=== PATIENT | female | born 2000 | race Two or more races ===

== ENCOUNTER → 2020-06-09 | Emergency (ER) | payer OTHER ==
[~2020-06-09] VITALS: Ht 175.3 cm; Wt 122.9 kg
[~2020-06-09] MED LIST: ADVIL; DOLOGESIC 500-1 EACH PO
== END | disposition home or self-care (01) ==
LOC: ER 02:49
DX: R51.9 Headache, unspecified (principal); R50.9 Fever, unspecified; Z11.52 Encounter for screening for COVID-19

== ENCOUNTER 2020-06-11 22:14 | Emergency (ER) | payer OTHER ==
[~2020-06-11] VITALS: Ht 175.3 cm; Wt 122.9 kg
[~2020-06-11 22:14] MED LIST changes: -ADVIL
[2020-06-11] MEDS ORDERED: ADVIL (22:33)
== END 2020-06-12 01:16 | disposition home or self-care (01) ==
LOC: ER 22:14
DX: A90 Dengue fever [classical dengue] (principal)

== ENCOUNTER 2023-03-26 18:31 | Emergency (ER) | payer OTHER ==
[~2023-03-26] VITALS: Ht 177.8 cm; Wt 116.6 kg
[~2023-03-26 18:31] MED LIST changes: +ADVIL
[2023-03-26 20:56] LABS: HEMATOCRIT 36.8 % (36.0-45.00); HEMOGLOBIN 12.2 g/dL (12.0-15.00); MEAN CELL VOLUME 81.9 fL (80.00-100.00); MEAN CORPUSCULAR HEMOGLOBIN 27.1 pg (27.00-32.0); MEAN CORPUSCULAR HGB CONC 33.1 g/dl (32.0-36.0); PLATELET COUNT 290 K/uL (150-450); RED BLOOD COUNT 4.49 M/uL (4.00-6.00); RED CELL DISTRIBUTION WIDTH 15.8 % (11.5-14.5)
[2023-03-26 21:10] LABS: URINE APPEARANCE Cloudy; URINE BILIRRUBIN Negative (NEGATIVE); URINE BLOOD Large; URINE COLOR Yellow; URINE GLUCOSE Negative (NEGATIVE); URINE LEUKOCYTE Trace; URINE NITRATE Negative
[2023-03-26 21:11] LABS: URINE RBC 845.7 uL (0.0-20.8); URINE WBC 89.9 uL (0.0-23.2)
[2023-03-26 21:12] LABS: INR 1.01; PARTIAL THROMBOPLASTIN TIME 32.8 SECONDS (22.0-34.0); PROTHROMBIN TIME 10.6 SECONDS (9.0-11.5)
[2023-03-26 21:17] LABS: URINE PROTEIN 100 (NEGATIVE)
[2023-03-26 22:03] LABS: CALCIUM 8.9 mg/dL (8.5-10.1); CREATININE SERUM 0.69 mg/dL (0.55-1.02); GFR 104.52; POTASSIUM 3.83 mEq/L (3.5-5.1)
== END 2023-03-27 00:19 | disposition home or self-care (01) ==
LOC: ER 18:31
PROVIDERS: General Practice
DX: O20.8 Other hemorrhage in early pregnancy (principal); Z3A.01 Less than 8 weeks gestation of pregnancy; R10.2 Pelvic and perineal pain; N93.8 Other specified abnormal uterine and vaginal bleeding

== ENCOUNTER 2024-03-14 08:10 | Inpatient (IN) | payer OTHER ==
[~2024-03-14] VITALS: Ht 177.8 cm; Wt 3.2 kg
[2024-03-14 08:15] VITALS: BP 133/79
[2024-03-14] MEDS ORDERED: RINGERS SOLUTION,LACTATED 1,000 ML IV SCH (08:30)
[2024-03-14 08:41] VITALS: BP 133/79
[2024-03-14 08:47] LABS: HEMATOCRIT 37.8 % (36.0-45.00); HEMOGLOBIN 12.2 g/dL (12.0-15.00); MEAN CELL VOLUME 79.3 fL (80.00-100.00); MEAN CORPUSCULAR HEMOGLOBIN 25.6 pg (27.00-32.0); MEAN CORPUSCULAR HGB CONC 32.2 g/dl (32.0-36.0); PLATELET COUNT 237 K/uL (150-450); RED BLOOD COUNT 4.76 M/uL (4.00-6.00); RED CELL DISTRIBUTION WIDTH 17.6 % (11.5-14.5)
[2024-03-14] MEDS ORDERED: LABETALOL HCL200 MG PO (08:47)
[2024-03-14] MEDS ORDERED: PRENATABS RX T1 EACH PO (08:47)
[2024-03-14 08:48] LABS: URINE APPEARANCE Turbid; URINE BILIRRUBIN Negative (NEGATIVE); URINE BLOOD Large; URINE COLOR Yellow; URINE GLUCOSE Negative (NEGATIVE); URINE KETONE Negative (NEGATIVE); URINE LEUKOCYTE Trace; URINE NITRATE Negative; URINE UROBILINOGEN 0.2 E.U./dl
[2024-03-14 08:49] LABS: URINE BACTERIA 1498.1 uL (0.0-1933); URINE EPITHELIAL CELLS 85.6 uL (0.0-38.8); URINE RBC 2174.5 uL (0.0-20.8)
[2024-03-14 09:06] LABS: INR 0.94; PARTIAL THROMBOPLASTIN TIME 30.5 SECONDS (22.0-34.0); PROTHROMBIN TIME 10.3 SECONDS (9.0-11.5)
[2024-03-14 09:14] LABS: ALBUMIN 2.4 gm/dL (3.4-5.0); BILIRUBIN TOTAL 0.25 mg/dL (0.3-1.2); CALCIUM 9.1 mg/dL (8.5-10.1); CREATININE SERUM 0.54 mg/dL (0.55-1.02); GFR 137.55; GLOBULINA 4.3 G/DL (2.4-3.5); POTASSIUM 4.83 mEq/L (3.5-5.1); TOTAL PROTEIN 6.7 gm/dL (6.4-8.2); URINE PROTEIN 100 (NEGATIVE)
[2024-03-14 09:17] LABS: URINE CRYSTALS MANY /HPF; URINE YEAST NEGATIVE /hpf
[2024-03-14] MEDS ORDERED: OXYTOCIN 500 ML IV SCH (09:30)
[2024-03-14] MEDS ORDERED: CITRIC ACID/SODIUM CITRATE 30 ML BLIST.PACK PO SCH (14:15)
[2024-03-14] MEDS ORDERED: CEFAZOLIN SODIUM 1,000 MG VIAL IV SCH (14:15)
[2024-03-14 15:43] VITALS: BP 152/79
[2024-03-14] MEDS ORDERED: OXYTOCIN 1,000 ML IV ONE (16:15)
[2024-03-14] MEDS ORDERED: ERYTHROMYCIN BASE OPHT 1GM EACH TUBE OP ONE (16:30)
[2024-03-14] MEDS ORDERED: OXYTOCIN 10 UNITS/ML VIAL IV ONE (16:30)
[2024-03-14] MEDS ORDERED: MORPHINE SULFATE 2 MG/ML CARTRIDGE IV SCH (17:00)
[2024-03-14] MEDS ORDERED: AMPICILLIN SODIUM 2,000 MG VIAL IV ONE (17:00)
[2024-03-14] MEDS ORDERED: LABETALOL HCL 200 MG TABLET PO SCH (17:00)
[2024-03-14] MEDS ORDERED: MORPHINE SULFATE 4 MG/ML CARTRIDGE IV SCH (17:00)
[2024-03-14] MEDS ORDERED: KETOROLAC TROMETHAMINE 30 MG VIAL IV SCH (18:00)
[2024-03-14 19:35] VITALS: BP 127/72
[2024-03-15 03:07] VITALS: BP 137/84
[2024-03-15] MEDS ORDERED: ACETAMINOPHEN 500 MG GEL..CAP PO SCH (06:00)
[2024-03-15 08:32] VITALS: BP 117/74
[2024-03-15] MEDS ORDERED: PNV,CALCIUM 72/IRON/FOLIC ACID 1 TAB TABLET PO SCH (09:00)
[2024-03-15] MEDS ORDERED: SIMETHICONE 125 MG CAPSULE PO SCH (09:00)
[2024-03-15] MEDS ORDERED: GABAPENTIN 300 MG CAPSULE PO SCH (09:00)
[2024-03-15] MEDS ORDERED: DOCUSATE SODIUM 100MG CAP PO SCH (09:00)
[2024-03-15 09:17] LABS: HEMATOCRIT 33.6 % (36.0-45.00); HEMOGLOBIN 11.2 g/dL (12.0-15.00); MEAN CELL VOLUME 77.8 fL (80.00-100.00); MEAN CORPUSCULAR HGB CONC 33.4 g/dl (32.0-36.0); PLATELET COUNT 188 K/uL (150-450); RED BLOOD COUNT 4.32 M/uL (4.00-6.00)
[2024-03-15] MEDS ORDERED: IBUprofen 600 MG TABLET PO SCH (12:00)
[2024-03-15 13:00] VITALS: BP 123/81
[2024-03-15 15:57] VITALS: BP 124/77
[2024-03-16 01:56] VITALS: BP 117/72
[2024-03-16 07:58] VITALS: BP 127/85
== END 2024-03-16 13:10 | disposition home or self-care (01) | DRG 788 ==
LOC: LDR 08:10 → OB/GYN 17:27
PROVIDERS: ADMIT Obstetrics & Gynecology Gynecology; ATTEND Obstetrics & Gynecology Gynecology
PROC: 4A1HXCZ Monitoring of Products of Conception, Cardiac Rate, External Approach (ICD-10-PCS; 2024-03-14)
PROC: 10D00Z1 Extraction of Products of Conception, Low, Open Approach (ICD-10-PCS; principal; 2024-03-14 15:30)
DX: O82 Encounter for cesarean delivery without indication (principal); O77.0 Labor and delivery complicated by meconium in amniotic fluid; Z3A.37 37 weeks gestation of pregnancy; Z37.0 Single live birth; Z20.822 Contact with and (suspected) exposure to COVID-19